=== PATIENT | female | born 1975 | race Caucasian/White ===

== ENCOUNTER 2021-09-11 10:45 | Emergency (ER) | payer BC ==
[~2021-09-11] VITALS: Ht 165.1 cm; Wt 65.2 kg
[2021-09-11] MEDS ORDERED: RABIES IMMUNE GLOBULIN 1500 INTERNATIONAL UNIT/5ML VIAL (90375) IM.IMMUN ONE (13:45)
[2021-09-11] MEDS ORDERED: RABIES VACCINE HUMAN 2.5 INTERNATIONAL UNITS/ML VIAL (90675) IM.IMMUN ONE (13:45)
[2021-09-11 14:55] VITALS: BP 129/87
== END 2021-09-11 15:01 | disposition home or self-care (01) ==
LOC: M ED 10:45
DX: Z20.3 Contact with and (suspected) exposure to rabies (principal); Y92.009 Unspecified place in unspecified non-institutional (private) residence as the place of occurrence of the external cause